=== PATIENT | female | born 1970 | race Caucasian/White ===

== ENCOUNTER 2022-06-07 15:12 | Outpatient (REF) | payer OTHER, SELFPAY ==
[2022-06-09 15:11] LABS: H Pylori Breath Test Positive (Negative)
== END 2022-06-07 15:13 | disposition home or self-care (01) ==
LOC: HO.LNP 15:12
PROVIDERS: Visit Provider Physician Assistant Surgical
DX: E66.01 Morbid (severe) obesity due to excess calories (principal)
CPT/HCPCS: 83013

== ENCOUNTER 2022-06-09 07:43 | Outpatient (REF) | payer OTHER, SELFPAY ==
--- NOTE | ~2022-06-09 | XR_ITS ---
EXAMINATION: XR CHEST CLINICAL INFORMATION: Obesity COMPARISON: None TECHNIQUE: 2 views of the chest were obtained. FINDINGS: No significant abnormality is noted involving the heart, lungs, mediastinum, bony thorax or soft tissues. XR/XR chest 2V IMPRESSION: Unremarkable examination.
--- NOTE | 2022-06-09 08:04 | ECG_ITS ---
Test Reason : E66.01 MORBID OBESITY Blood Pressure : / mmHG Vent. Rate : 069 BPM Atrial Rate : 069 BPM P-R Int : 178 ms QRS Dur : 090 ms QT Int : 402 ms P-R-T Axes : 022 020 037 degrees QTc Int : 430 ms Normal sinus rhythm Normal ECG No previous ECGs available Referred By: Vinh Benedict Electronically Signed By:LELE SILVA
[2022-06-09 08:06] LABS: MANUAL DIFF FLAG NO
[2022-06-09 09:13] LABS: Basophils Absolute Auto 0.1 X10*3/uL (0.0-0.2); Basophils Percent Auto 1.1 % (0-2); Eosinophils Absolute Auto 0.2 X10*3/uL (0.0-0.4); Eosinophils Percent Auto 2.5 % (0-4); Hematocrit 40.7 % (37.0-47.0); Hemoglobin 13.5 g/dl (12.0-16.0); Imm Gran Abs Auto 0.03 X10*3/uL (0.00-0.03); Imm Gran Pct Auto 0.4 % (0.0-0.4); Lymphocytes Absolute Auto 2.4 X10*3/uL (1.2-4.9); Lymphocytes Percent Auto 31.7 % (20-40); Mean Corpuscular HGB Conc 33.2 g/dl (31.0-35.0); Mean Corpuscular Hemoglobin 29.7 pg (27.0-33.0); Mean Corpuscular Volume 89.6 fL (80.0-98.0); Mean Platelet Volume 10.6 fL (9.4-12.3); Monocytes Absolute Auto 0.8 X10*3/uL (0.1-1.2); Neutrophils Absolute Auto 4.1 x10*3/uL (2.0-8.3); Neutrophils Percent Auto 54.3 % (45-73); Platelet Count 354 X10*3/uL (160-400); Red Blood Count 4.54 X10*6/uL (4.20-5.50); Red Cell Distribution Width 12.9 % (11.0-16.0); White Blood Count 7.5 X10*3/uL (4.8-10.8)
[2022-06-09 09:24] LABS: Estimated Average Glucose 111 mg/dL; Hemoglobin A1c % 5.5 %
[2022-06-09 09:53] LABS: Alanine Aminotransferase 24 U/L (0-31); Albumin Level 3.9 g/dL (3.5-5.0); Alkaline Phosphatase 74 U/L (39-117); Anion Gap 13 (12-20); Aspartate Amino Transferase 19 U/L (5-31); Bilirubin Total 0.3 mg/dL (0.0-1.0); Blood Urea Nitrogen 13 mg/dL (9-16); C Reactive Protein 0.48 mg/dL (< or = 0.50); Calcium 8.5 mg/dL (8.4-10.2); Carbon Dioxide 22 mmol/L (22-29); Chloride 106 mmol/L (96-108); Cholesterol 162 mg/dL; Estimated Glomerular Filt Rate > 60; Glucose Random 89 mg/dL (60-115); HDL Cholesterol 46 mg/dL; Iron 71 mcg/dL (30-160); LDL Cholesterol Calculated 102 mg/dl; Percent Iron Saturation 18 % (15-50); Potassium 4.3 mmol/L (3.3-5.1); Sodium 137 mmol/L (135-145); Total Iron Binding Capacity 384 mcg/dL (228-428); Total Protein 7.2 g/dL (6.5-8.0); Triglycerides 74 mg/dL; Unsaturated Iron Binding 313 ug/dL
[2022-06-09 10:09] LABS: Ferritin 48 ng/mL (10-250); TSH reflex Free T4 1.63 uIU/mL (0.32-4.0); Vitamin D 25-OH Total 13.4 ng/mL (>30)
[2022-06-09 10:20] LABS: Folate 8.4 ng/mL (> or = 4.0); Vitamin B12 325 pg/mL (200-900)
[2022-06-09 11:06] LABS: Insulin 10 uU/mL (2-29)
[2022-06-10 11:32] LABS: Calcium (PTHI) 8.9 mg/dL (8.6-10.4); PTHI 133 pg/mL (16-77)
[2022-06-12 15:34] LABS: Zinc 73 mcg/dL (60-130)
[2022-06-15 22:47] LABS: Vitamin A 32 mcg/dL (38-98)
[2022-06-18 17:31] LABS: Vitamin B1 8 nmol/L (8-30)
== END 2022-06-09 07:44 | disposition home or self-care (01) ==
LOC: HO.XRAY 07:43
PROVIDERS: PCP Internal Medicine; Visit Provider Physician Assistant Surgical
DX: E66.01 Morbid (severe) obesity due to excess calories (principal)
CPT/HCPCS: 36415; 71046; 80053; 80061; 82306; 82607; 82728; 82746; 83036; 83525; 83540; 83970; 84425; 84443; 84590; 84630; 85025; 86140; 93005

== ENCOUNTER → 2022-07-02 13:00 | Outpatient (BNVA) | payer OTHER, SELFPAY | PROVIDERS: PCP Internal Medicine; Visit Provider Dietitian, Registered | DX: E66.01 Morbid (severe) obesity due to excess calories (principal); Z71.3 Dietary counseling and surveillance | CPT/HCPCS: 97802 ==

== ENCOUNTER → 2022-07-12 08:42 | Outpatient (BNVA) | payer OTHER, SELFPAY | PROVIDERS: PCP Internal Medicine; Visit Provider Dietitian, Registered | DX: E66.9 Obesity, unspecified (principal); F90.2 Attention-deficit hyperactivity disorder, combined type; Z68.38 Body mass index [BMI] 38.0-38.9, adult | CPT/HCPCS: 90791; 97803 ==

== ENCOUNTER 2022-07-13 16:08 | Outpatient (REF) | payer OTHER, SELFPAY ==
[2022-07-15 15:34] LABS: H Pylori Breath Test Negative (Negative)
== END 2022-07-13 16:09 | disposition home or self-care (01) ==
LOC: HO.LNP 16:08
PROVIDERS: Visit Provider Physician Assistant Surgical
DX: Z01.818 Encounter for other preprocedural examination (principal)
CPT/HCPCS: 83013

== ENCOUNTER → 2022-07-28 12:56 | Outpatient (BNVA) | payer OTHER, SELFPAY | PROVIDERS: PCP Internal Medicine; Visit Provider Counselor Mental Health | DX: E66.01 Morbid (severe) obesity due to excess calories (principal); F90.2 Attention-deficit hyperactivity disorder, combined type | CPT/HCPCS: 90834 ==

== ENCOUNTER 2022-08-24 07:39 | Outpatient (REF) | payer OTHER, SELFPAY ==
--- NOTE | ~2022-08-24 | FL_ITS ---
EXAMINATION: FLUOROSCOPY UPPER GI WITH AIR CLINICAL INFORMATION: Preop surgical weight loss COMPARISON: None. TECHNIQUE: An upper GI examination is performed under fluoroscopic observation with digital image acquisition. The patient drank effervescent granules, thick and thin barium consistencies without difficulty. Patient swallowed a 13 mm diameter barium tablet with water. FINDINGS: The esophagus is normal in motility and morphology. Normal caliber. No hiatal hernia. No spontaneous gastroesophageal reflux. The stomach demonstrates normal motility with normal rugal folds. The duodenal bulb and proximal duodenum demonstrate no evidence of ulcer, mass lesion, or displacement. The barium tablet coursed promptly into the stomach. No stricture. FLUOROSCOPY TIME: 1.7 minutes TOTAL: 61.993 MGY DAP: 20.431 GYCM2 ADDITIONAL FINDINGS: None. FL/FL upper GI w air IMPRESSION: Normal UGI. Normal esophageal and gastric motility. No hiatal hernia.
--- NOTE | ~2022-08-24 | US_ITS ---
EXAMINATION: US COMPLETE ABDOMEN WITH LIVER ELASTOGRAPHY CLINICAL INFORMATION: Obesity COMPARISON: None. TECHNIQUE: Real-time imaging of the abdominal viscera. Noninvasive ultrasound liver fibrosis assessment is performed using Leandro ElastPQ point quantification shear wave elastography (2D-SWE) with a C5-2 MHz transducer. Multiple elastography samples are obtained. FINDINGS: PANCREAS: Normal. ABDOMINAL AORTA: The proximal, middle, and distal aortic segments are normal in caliber. INFERIOR VENA CAVA: Visualized portions are normal. LIVER: Liver echotexture is increased. The liver demonstrates normal size, and contour. No focal lesion or intrahepatic biliary duct dilatation. The right lobe measures 18 cm in length. The left lobe measures 10 cm in length. Portal Flow is normal/ Shear wave liver elastography median stiffness is 1.5 m/s (reference: normal median stiffness is 1.3 m/s or less). IQR/median stiffness to assess sampling precision is 0.05 (reference: good quality data set is IQR/median stiffness of 0.15 or less). GALLBLADDER: Normal. The gallbladder is physiologically distended without evidence of stones, sludge, polyps, wall thickening or pericholecystic fluid. COMMON BILE DUCT: Normal in caliber measuring 0.7 cm in diameter. RIGHT KIDNEY: Normal. No hydronephrosis. No renal calculi or focal parenchymal lesions. The kidney measures 13 cm in maximum dimension. LEFT KIDNEY: Normal. No hydronephrosis. No renal calculi or focal parenchymal lesions. The kidney measures 12 cm in maximum dimension. SPLEEN: Normal. The spleen measures 10 cm in maximum dimension. FREE FLUID: None. US/US abdomen comp w elastography IMPRESSION: 1. Impression: Echogenic liver probably representing fatty infiltration. 2. Liver elastography: Adequate liver sampling. In the absence of other known clinical signs, rules out compensated advanced chronic liver disease. REFERENCE: Society of Radiologists in Ultrasound Liver Stiffness Thresholds (2020): LIVER STIFFNESS THRESHOLDS: *Liver Stiffness equal or less than 1.3 m/s: High probability of being normal. *Liver Stiffness less than 1.7 m/s: In the absence of other known clinical signs, rules out compensated advanced chronic liver disease. *Liver Stiffness 1.7-2.1 m/s: Suggestive of compensated advanced chronic liver disease but need further test for confirmation. *Liver Stiffness over 2.1 m/s: Rules in compensated advanced chronic liver disease. *Liver Stiffness over 2.4 m/s: Suggestive of clinically significant portal hypertension. QUALITY OF DATA SET: *IQR/Median value equal or less than 0.15 implies a quality data set. *IQR/Median value over 0.15 implies a poor quality data set. SIGNIFICANT CHANGE FROM PRIOR EXAM: Significant change if liver stiffness measurement is 10% or greater from prior exam. OTHER CONSIDERATIONS: The stage of liver fibrosis may be overestimated in the setting of acute hepatitis, liver inflammation, elevated liver function tests, hepatic vascular congestion, obstructive cholestasis, non-fasting state, and infiltrative diseases such as amyloidosis and lymphoma. In some patients with NAFLD, the liver stiffness thresholds for compensated advanced chronic liver disease may be lower. In causes other than viral hepatitis and NAFLD, liver stiffness thresholds are not well established.
== END 2022-08-24 07:40 | disposition home or self-care (01) ==
LOC: HO.US 07:39
PROVIDERS: Visit Provider Physician Assistant Surgical
DX: Z01.818 Encounter for other preprocedural examination (principal); E66.01 Morbid (severe) obesity due to excess calories
CPT/HCPCS: 74246; 76705; 76981

== ENCOUNTER 2022-08-30 03:53 | Emergency (ER) | payer OTHER, SELFPAY ==
--- NOTE | ~2022-08-30 | US_ITS ---
EXAMINATION: US VENOUS ULTRASOUND WITH DOPPLER LOWER EXTREMITY, LEFT CLINICAL INFORMATION: Left neck pain and swelling COMPARISON: None TECHNIQUE: Ultrasound of the deep veins is performed from the hip to the calf with compression sonography and color and pulse Doppler assessment. Spectral analysis with color-flow imaging is performed. FINDINGS: There is normal venous compression and respiratory variation and augmented flow. The visualized common femoral vein, superficial femoral vein, profunda femoral vein, popliteal vein, and the trifurcation region shows no evidence of deep venous thrombosis. There is no significant popliteal fossa cyst. If the patient's symptoms persist, followup ultrasound in 5 days 7 days might be of value to exclude proximal propagation from a non-visualized calf vein. US/US venous duplex LE LT IMPRESSION: No DVT demonstrated in the left lower extremity.
[2022-08-30 04:44] VITALS: BP 114/70; PULSE 80; RESP 20; TEMP 36.5; O2SAT 98; BMI 37.3
[2022-08-30 08:19] VITALS: BP 114/71; PULSE 73; RESP 19; TEMP 36.7; O2SAT 100
--- NOTE | 2022-08-30 08:28 | PC.NURSE ---
pt is a/o x 4 no sob/prosper noted lungs - cta. heart sound regular. skin pink warm dry, very slight edema noted to l lower ext warm to touch. abd soft and n/t, bx + x 4 quads. pt aware of plan of care.
--- NOTE | 2022-08-30 09:04 | ED.LOWEXIN ---
HPI - Extremity Injury (Lower) General Chief Complaint: Extremity Injury, Lower Stated Complaint: Bilateral legs painful , redness Time Seen by Provider: 08/30/22 08:39 Source: patient Mode of arrival: ambulatory History of Present Illness HPI Narrative: 51-year-old female with a past medical history of HTN, hypothyroid, obesity, presenting to the ED complaining of left lower extremity edema, redness, and calf pain x1 week. Admits called bariatric surgeon & was started on Keflex, last day is tomorrow. Denies taking anticoagulation. Denies fever, chills, SOB, CP, recent travel, sick contacts Onset (ago): week(s) Related Data Home Medications Medication Instructions Recorded Confirmed albuterol sulfate 90 mcg/actuation 0 mcg inhalation 05/21/22 aerosol inhaler amlodipine 10 mg tablet 10 mg PO DAILY 05/21/22 hydrochlorothiazide 25 mg tablet 25 mg PO DAILY 05/21/22 levothyroxine 200 mcg tablet 200 mcg PO DAILY PRN 05/21/22 (Euthyrox) levothyroxine 50 mcg tablet 50 mcg PO QAM 05/21/22 (Euthyrox) onabotulinumtoxinA 200 unit intradermal 05/21/22 solution for injection (Botox) Previous Rx's Medication Instructions Recorded amoxicillin 500 mg capsule 1,000 mg PO Q12H 14 days #56 caps 06/09/22 cholecalciferol (vitamin D3) 125 125 mcg PO DAILY #30 caps 06/09/22 mcg (5,000 unit) capsule clarithromycin 500 mg tablet 500 mg PO Q12H 14 days #28 tabs 06/09/22 omeprazole 40 mg capsule,delayed 40 mg PO BID 14 days #28 caps 06/09/22 release vitamin A palmitate 10,000 unit 10,000 unit PO DAILY #30 caps 06/16/22 capsule fluconazole 150 mg tablet 150 mg PO DAILY #2 tabs 06/25/22 (Diflucan) mecobalamin (vitamin B12) 1,000 1,000 mcg sublingual DAILY #30 tabs 06/28/22 mcg disintegrating tablet,sublingual cephalexin 500 mg capsule 500 mg PO Q12H #14 caps 08/21/22 Allergies Allergy/AdvReac Type Severity Reaction Status Date / Time diphenhydramine Allergy Severe UNRESPONSIV Verified 06/07/22 14:06 [From BENADRYL] E acetaminophen [From PERCOCET] Allergy Intermediate ITCHYNESS, Verified 06/07/22 14:06 HIVES. meperidine [From DEMEROL] Allergy Intermediate HIVES, Verified 06/07/22 14:06 ITCHINESS, VOMITING oxycodone [From PERCOCET] Allergy Intermediate ITCHYNESS, Verified 06/07/22 14:06 HIVES. propoxyphene Allergy Intermediate ITCHYNESS, Verified 06/07/22 14:06 [From DARVOCET-N] tizanidine Allergy Mild Unknown Verified 06/07/22 14:06 miconazole [From MONISTAT 3] Allergy Unknown UNKNOWN Verified 06/07/22 14:06 skin cleanser combination Allergy Unknown UNKNOWN Verified 06/07/22 14:06 no.17 [From MONISTAT 3] Review of Systems Review of Systems: Constitutional: No Fever, No Chills ENT/Mouth: No Ear Pain, No Nasal Congestion, No Sinus Pain, No Hoarseness, No sore throat, No Rhinorrhea, No Swallowing Difficulty Cardiovascular: No Chest Pain, No SOB, +Edema Respiratory: No Cough, No Sputum, No Wheezing Gastrointestinal: No Nausea, No Vomiting, No Diarrhea, No Constipation, No Abdominal pain Genitourinary: No Dysuria, No Urinary Frequency, No Hematuria, No Flank Pain Musculoskeletal: No joint pain, No Myalgias, No Joint Swelling Skin: No Skin Lesions, No rash Neuro: No Weakness, No Numbness, No Paresthesias Yes all other systems are reviewed and are negative Constitutional: Constitutional: Reports as per [facility] Past Medical History Attestation statement: The following information was validated with the patient. Surgical History History of 2 sections Hx of bladder endoscopy Hx of colonoscopy Hx of hysterectomy Hx of rotator cuff surgery Hx of toe surgery Hx of wisdom tooth extraction Family History Family History Mother HTN (hypertension), benign Father Cancer Son ADHD Son ADHD Son ADHD Social History Social History Alcohol intake: never Patient Tobacco Use Status: Former Tobacco user Quit Date: 05/10/22 Use of substances other than those prescribed or required for medical reasons: No Advance Directives: Yes Advance Directives Information Provided: Yes Advance Directives on File: No Patient : No Physical Exam Vital Signs: Vital Signs: Last Vital Signs Temp 98.1 F 08/30/22 08:19 Pulse 73 08/30/22 08:19 Resp 19 08/30/22 08:19 BP 114/71 08/30/22 08:19 Pulse Ox 100 08/30/22 08:19 O2 Del Method 08/30/22 08:19 BMI result Body Mass Index 37.3 Const: General: cooperative, healthy appearing and no acute distress Orientation/consciousness: patient oriented x3 Limitations: no limitations HEENT: Head: Yes normal to inspection and Yes atraumatic Ears: hearing grossly normal bilaterally General nose exam: Normal external nose present Face and sinus: Yes normal facial exam Eyes: General: appearance normal, both eyes and all related structures EOM: EOMs intact bilaterally Neck: Neck: Yes normal visual inspection and Yes no meningeal signs Resp: Effort & Inspection: normal respiratory effort and no respiratory distress Cardio: Rate: regular rate Heart sounds: S1 normal heart sound present and S2 normal heart sound present Peripheral pulses: Peripheral pulses 2+ throughout GI: Inspection: Yes normal to inspection : General: Yes no CVA tenderness Back/Spine/Pelvis: Back: no CVA tenderness Skin: Rashes: no rashes Wounds: no wounds Neuro: General: patient oriented x3, tone normal and no meningeal signs Gait exam (Neuro): Normal gait present Extrem: Other: + mild left lower extremity swelling. + left calf tenderness. Neurovascularly intact. No erythema/warmth. Full range of motion intact Course Course Course Narrative: US venous duplex LE LT IMPRESSION: No DVT demonstrated in the left lower extremity. > Results discussed with patient including worrisome signs and symptoms and strict return precautions, and when to return to the emergency department. They verbalized understanding and feel safe for discharge at this time. MDM - Extremity Injury (Lower) MDM Narrative Medical decision making narrative: 51-year-old female with a past medical history of HTN, hypothyroid, obesity, presenting to the ED complaining of left lower extremity edema, redness, and calf pain x1 week. On exam vital signs stable, NAD, nontoxic appearing, physical exam as above with noted left lower extremity swelling and calf tenderness. Concern for DVT. No evidence of infection/cellulitis. Compartments soft. No crepitus. Low suspicion for septic joint. Unlikely PE. Plan: Venous duplex ultrasound Medical Records Attestation: I reviewed the patient's medical records. Lab Data Attestation: I reviewed the patient's lab results. Discharge Plan Discharge Clinical Impression: Leg swelling Patient Disposition: Home, Self-Care Instructions: Edema (ED) Additional Instructions: Your ultrasound is negative for DVT. Continue previously prescribed antibiotic. Please have close follow-up with her doctor. If you have continued or worsening pain, area begins to look infected, is red, you have fever, shortness breath or chest pain return to the emergency department Prescriptions: No Action cholecalciferol (vitamin D3) 125 mcg (5,000 unit) capsule 125 mcg PO DAILY Qty: 30 3RF amoxicillin 500 mg capsule 1,000 mg PO Q12H 14 Days Qty: 56 0RF clarithromycin 500 mg tablet 500 mg PO Q12H 14 Days Qty: 28 0RF omeprazole 40 mg capsule,delayed release(DR/EC) 40 mg PO BID 14 Days Qty: 28 0RF vitamin A palmitate 10,000 unit capsule 10,000 unit PO DAILY Qty: 30 2RF fluconazole [Diflucan] 150 mg tablet 150 mg PO DAILY Qty: 2 0RF Rx Instructions: Take one tab on 06/27/22, may repeat on 06/29/22 if symptoms persist cephalexin 500 mg capsule 500 mg PO Q12H Qty: 14 0RF mecobalamin (vitamin B12) 1,000 mcg tablet,disintegrating 1,000 mcg sublingual DAILY Qty: 30 2RF Rx Instructions: place tablet under tongue and allow to dissolve for at least30 secs before swallowing amlodipine 10 mg tablet 10 mg PO DAILY hydrochlorothiazide 25 mg tablet 25 mg PO DAILY levothyroxine [Euthyrox] 200 mcg tablet 200 mcg PO DAILY PRN levothyroxine [Euthyrox] 50 mcg tablet 50 mcg PO QAM Botox 200 unit recon soln intradermal albuterol sulfate 90 mcg/actuation HFA aerosol inhaler 0 mcg inhalation Referrals: Kashif Jett MD [Primary Care Provider] - 3 days
== END 2022-08-30 10:50 | disposition home or self-care (01) ==
PROVIDERS: Emergency Provider Student in an Organized Health Care Education/Training Program; PCP Internal Medicine
DX: R60.0 Localized edema (principal); M79.605 Pain in left leg; M79.604 Pain in right leg; Z79.899 Other long term (current) drug therapy
CPT/HCPCS: 93971; 99284

== ENCOUNTER 2023-09-29 09:54 | Emergency (ER) | payer SELFPAY ==
[2023-09-29 09:57] VITALS: BP 144/100; PULSE 79; RESP 18; TEMP 36.4; O2SAT 94; BMI 35.2
[2023-09-29 10:46] VITALS: BP 135/91
--- NOTE | 2023-09-29 11:34 | ED.NAVMDI ---
HPI - Nausea/Vomiting/Diarrhea General Chief complaint: Nausea/Vomiting/Diarrhea Stated complaint: diarrhea Time Seen by Provider: 09/29/23 10:44 Source: patient Mode of arrival: ambulatory Limitations: no limitations History of Present Illness HPI Narrative: 53-year-old female . Weight hypertension, celiac disease, hypothyroidism, ADHD, Meniere's, migraine x3 who presents emergency department for evaluation diarrhea x5 days. Patient states that she was seen at other emergency department for vertigo on 09/24/2023 for vertigo was started on meclizine. She states the next day she started to have diarrhea. She states that she took Imodium with resolution of the diarrhea but then it started back again the following day. She states she has been moving her bowels frequently every every 1-2 hours. She describes the diarrhea as watery with no blood in the stool. She states she feels bloated and her abdomen is cramping. She is feeling tired and weak. She denied fever, chills, rhinorrhea, sore throat, cough, nausea or vomiting. The patient has not been on antibiotics recently. She has not traveled recently. She states that her dog did have Giardia and coccydiosis. Patient does work at [employer] as a nurse but does not believe that she has been exposed any patient's recently with C diff colitis. Related Data Home Medications Medication Instructions Recorded Confirmed albuterol sulfate 90 mcg/actuation 0 mcg inhalation 05/21/22 aerosol inhaler amlodipine 10 mg tablet 10 mg PO DAILY 05/21/22 hydrochlorothiazide 25 mg tablet 25 mg PO DAILY 05/21/22 levothyroxine 200 mcg tablet 200 mcg PO DAILY PRN 05/21/22 (Euthyrox) levothyroxine 50 mcg tablet 50 mcg PO QAM 05/21/22 (Euthyrox) onabotulinumtoxinA 200 unit intradermal 05/21/22 solution for injection (Botox) Previous Rx's Medication Instructions Recorded amoxicillin 500 mg capsule 1,000 mg (2 x 500 mg) PO Q12H 14 06/09/22 days #56 caps cholecalciferol (vitamin D3) 125 125 mcg PO DAILY #30 caps 06/09/22 mcg (5,000 unit) capsule clarithromycin 500 mg tablet 500 mg PO Q12H 14 days #28 tabs 06/09/22 omeprazole 40 mg capsule,delayed 40 mg PO BID 14 days #28 caps 06/09/22 release vitamin A palmitate 3,000 mcg 10,000 unit PO DAILY #30 caps 06/16/22 (10,000 unit) capsule fluconazole 150 mg tablet 150 mg PO DAILY #2 tabs 06/25/22 (Diflucan) mecobalamin (vitamin B12) 1,000 1,000 mcg sublingual DAILY #30 tabs 06/28/22 mcg disintegrating tablet,sublingual cephalexin 500 mg capsule 500 mg PO Q12H #14 caps 08/21/22 morphine 15 mg immediate release 15 mg PO Q6H PRN pain #10 tabs 09/29/23 tablet Allergies Allergy/AdvReac Type Severity Reaction Status Date / Time diphenhydramine Allergy Severe UNRESPONSIV Verified 09/29/23 09:57 [From BENADRYL] E acetaminophen [From PERCOCET] Allergy Intermediate ITCHYNESS, Verified 09/29/23 09:57 HIVES. meperidine [From DEMEROL] Allergy Intermediate HIVES, Verified 09/29/23 09:57 ITCHINESS, VOMITING oxycodone [From PERCOCET] Allergy Intermediate ITCHYNESS, Verified 09/29/23 09:57 HIVES. propoxyphene Allergy Intermediate ITCHYNESS, Verified 09/29/23 09:57 [From DARVOCET-N] tizanidine Allergy Mild Unknown Verified 09/29/23 09:57 miconazole [From MONISTAT 3] Allergy Unknown UNKNOWN Verified 09/29/23 09:57 skin cleanser combination Allergy Unknown UNKNOWN Verified 09/29/23 09:57 no.17 [From MONISTAT 3] Review of Systems Review of Systems: Yes all other systems are reviewed and are negative [facility] Past Medical History [facility] Narrative: Past medical history: Hypertension, celiac disease, hypothyroidism, ADHD, Meniere's disease, migraines. Surgical History History of 2 sections Hx of bladder endoscopy Hx of colonoscopy Hx of hysterectomy Hx of rotator cuff surgery Hx of toe surgery Hx of wisdom tooth extraction Family History Family History Mother HTN (hypertension), benign Father Cancer Son ADHD Son ADHD Son ADHD Social History Social History Alcohol intake: never Patient Tobacco Use Status: Former Tobacco user Quit Date: 05/10/22 Advance Directives: No Advance Directives Information Provided: No Physical Exam Vital Signs: Vital Signs: Last Vital Signs Temp 97.6 F 09/29/23 09:57 Pulse 79 09/29/23 09:57 Resp 18 09/29/23 09:57 BP 135/91 H 09/29/23 10:46 Pulse Ox 94 09/29/23 09:57 BMI result Body Mass Index 35.2 Exam General: Awake, alert in no distress Head: Normocephalic, atraumatic EENT: PERRL, Lids normal, sclera normal, conjunctiva normal, nose normal , ears normal, throat without erythema or exudates Neck: Supple, no adenopathy, no trachea midline or C-spine tenderness Lung: breath sounds symmetric, no wheezing, rales or rhonchi Chest: symmetric movement, nontender Heart: regular rate and rhythm, normal S1, S2 no murmurs or rubs Abdomen: soft, moderate right upper and left upper quadrant tenderness, mild diffuse tenderness Back: no vertebral tenderness, no CVAT Extremities: no deformities, moves all extremities symmetrically Neuro: Awake, alert, oriented, normal speech, moves all extremities symmetrically Psych: Pleasant, cooperative Medications Administered Discontinued Medications Generic Name Dose Route Start Last Admin Trade Name Freq PRN Reason Stop Dose Admin Sodium Chloride 1,000 mls @ 999 mls/hr 09/29/23 11:33 09/29/23 11:54 Ns IV 09/29/23 12:33 999 mls/hr .Q1H1M STA Administration Morphine Sulfate 4 mg 09/29/23 11:33 09/29/23 11:54 Morphine Sulfate 4 Mg/Ml Cartridge IVPUSH 09/29/23 11:34 4 mg ONCE STA Administration Protocol Ondansetron HCl 4 mg 09/29/23 11:33 09/29/23 11:54 Ondansetron Hcl 4 Mg/2 Ml Vial IVPUSH 09/29/23 11:34 4 mg ONCE ONE Administration Medical Decision Making Medical Decision Making MDM Narrative: 53-year-old female . Weight hypertension, celiac disease, hypothyroidism, ADHD, Meniere's, migraine x3 who presents emergency department for evaluation diarrhea x5 days. Patient did take Imodium for 2 days with only minimal improvement of her symptoms, she states she is moving her bowels every 1-2 hours but has not noticed any blood in her bowel movements. She had no fever or chills. Patient's dog did have giardia and coccydiosis. 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 Following evaluation was ordered: CBC, CMP, lipase, GI panel, C diff Patient was treated with normal saline IV x1 L, morphine 4 mg IV and Zofran 4 mg IV. 14:12 Patient did get improvement with the above treatment but did require 2nd dose of morphine 4 mg IV. My interpretation of the patient's laboratory evaluation as follows: CBC was normal. CMP was normal. Lipase was normal. Patient was unable to give us a stool sample therefore she will be sent home with GI panel collection cup and a C diff collection cup with instructions on how they work. Patient will also be given axis the patient portal so she can check these results as an outpatient. Patient was advised to take Tylenol and ibuprofen for pain and for pain not relieved by these medications she was prescribed morphine. She was also given a work note. Differential Diagnosis Differential Diagnoses: The differential diagnosis associated with the presentation includes Differential diagnosis includes was not limited to viral syndrome, C diff, Giardia, bacterial the infection causing diarrhea, dehydration, anemia, electrolyte abnormalities Admission/Observation Consideration of admission/observation: Escalation of care including admission/observation considered Lab Data [facility] Lab Attestation statement: I reviewed the patient's lab results. See [facility] 09/29/23 11:52 09/29/23 11:52 Labs: Lab Results 09/29/23 Range/Units 11:52 WBC 6.0 (4.8-10.8) X10*3/uL RBC 4.93 (4.20-5.50) X10*6/uL Hgb 14.8 (12.0-16.0) g/dl Hct 44.3 (37.0-47.0) % MCV 89.9 (80.0-98.0) fL MCH 30.0 (27.0-33.0) pg MCHC 33.4 (31.0-35.0) g/dl RDW 13.7 (11.0-16.0) % Plt Count 289 (160-400) X10*3/uL MPV 10.4 (9.4-12.3) fL Immature Gran % (Auto) 0.2 (0.0-0.4) % Neut % (Auto) 41.5 L (45-73) % Lymph % (Auto) 43.0 H (20-40) % Mccormick % (Auto) 10.6 (2-11) % Eos % (Auto) 4.2 H (0-4) % Baso % (Auto) 0.5 (0-2) % Lymph # (Auto) 2.6 (1.2-4.9) X10*3/uL Mccormick # (Auto) 0.6 (0.1-1.2) X10*3/uL Eos # (Auto) 0.3 (0.0-0.4) X10*3/uL Baso # (Auto) 0.0 (0.0-0.2) X10*3/uL Abs Immat Gran (auto) 0.01 (0.00-0.03) X10*3/uL Absolute Neuts (auto) 2.5 (2.0-8.3) x10*3/uL Absolute Nucleated RBC 0.000 (0.0-0.012) X10*3/uL Nucleated RBC % (auto) 0.0 (0.0-0.2) /100WBC Sodium 140 (135-145) mmol/L Potassium 3.6 (3.3-5.1) mmol/L Chloride 108 (96-108) mmol/L Carbon Dioxide 28 (22-29) mmol/L Anion Gap 8 L (12-20) BUN 9 (9-16) mg/dL Creatinine 0.72 (0.5-1.4) mg/dL Estim Creat Clear Calc 114.6 Estimated GFR > 60 Random Glucose 73 (60-115) mg/dL Calcium 8.9 (8.4-10.2) mg/dL Total Bilirubin 0.3 (0.0-1.0) mg/dL AST 19 (5-31) U/L ALT 18 (0-31) U/L Alkaline Phosphatase 70 (39-117) U/L Total Protein 7.2 (6.5-8.0) g/dL Albumin 3.9 (3.5-5.0) g/dL Lipase 24 (8-78) U/L Prescription Management I considered prescription management with: Pain Medication Discharge Plan Discharge Clinical Impression: Abdominal pain Qualifiers: Abdominal location: generalized Qualified Code(s): R10.84 - Generalized abdominal pain Diarrhea Qualifiers: Diarrhea type: unspecified type Qualified Code(s): R19.7 - Diarrhea, unspecified Patient Disposition: Home, Self-Care Instructions: Acute Diarrhea (ED), Abdominal Pain (ED) Additional Instructions: Your complete blood count, comprehensive metabolic panel and lipase were all normal which is reassuring. Your abdominal pain is most likely caused by the diarrhea. Take ibuprofen 200 mg pills, 2 pills every 6 hours as needed for pain. Take Tylenol (acetaminophen) 2 pills every 6 hours as needed for pain. For pain not relieved by ibuprofen or Tylenol take morphine 15 mg pills, 1 pill every 4 hours as needed for pain. This medication will make you sleepy, do not drive or work while taking this medication. Morphine is a narcotic medication and can be addicting. If you are concerned about addiction you can ask the pharmacist for less pills or do not get this prescription filled. GI panel collection instructions: We are sending you home with a stool sample orange top tube for a ?GI Panel . This test is a genetic nucleotide test for multiple infectious causes of diarrhea. This test is time sensitive needs to be put into the orange top tube within 2 hours of collection. The test then needs to be run within 4 days of collection. You should bring the tube back to the outpatient lab as soon as possible. The outpatient lab is open till 6:00 PM on weekend, 11:00 AM on Tuesday and closed on Sundays. You will then need to get the results from your primary care doctor. Follow-up instructions: Follow-up with your doctor in 2 days. Please return to the emergency department if your symptoms get worse or if you develop any symptoms that are concerning to you. Prescriptions: New morphine 15 mg tablet 15 mg PO Q6H PRN (Reason: pain) Qty: 10 0RF Rx Instructions: The patient may ask for partial fill; Partial Fill upon patient request. No Action cholecalciferol (vitamin D3) 125 mcg (5,000 unit) capsule 125 mcg PO DAILY Qty: 30 3RF amoxicillin 500 mg capsule 1,000 mg PO Q12H 14 Days Qty: 56 0RF clarithromycin 500 mg tablet 500 mg PO Q12H 14 Days Qty: 28 0RF omeprazole 40 mg capsule,delayed release(DR/EC) 40 mg PO BID 14 Days Qty: 28 0RF vitamin A palmitate 10,000 unit capsule 10,000 unit PO DAILY Qty: 30 2RF fluconazole [Diflucan] 150 mg tablet 150 mg PO DAILY Qty: 2 0RF Rx Instructions: Take one tab on 06/27/22, may repeat on 06/29/22 if symptoms persist cephalexin 500 mg capsule 500 mg PO Q12H Qty: 14 0RF mecobalamin (vitamin B12) 1,000 mcg tablet,disintegrating 1,000 mcg sublingual DAILY Qty: 30 2RF Rx Instructions: place tablet under tongue and allow to dissolve for at least30 secs before swallowing amlodipine 10 mg tablet 10 mg PO DAILY hydrochlorothiazide 25 mg tablet 25 mg PO DAILY levothyroxine [Euthyrox] 200 mcg tablet 200 mcg PO DAILY PRN levothyroxine [Euthyrox] 50 mcg tablet 50 mcg PO QAM Botox 200 unit recon soln intradermal albuterol sulfate 90 mcg/actuation HFA aerosol inhaler 0 mcg inhalation Stand Alone Forms: Work/School Release
[2023-09-29] MEDS: Morphine Sulfate 4 MG/ML CARTRIDGE IVPUSH ×2 (11:54→14:50)
[2023-09-29] MEDS: ondansetron HCL 4 MG/2 ML VIAL IVPUSH (11:54)
[2023-09-29] MEDS: 0.9 % Sodium Chloride 1,000 ML 999 ML IV (11:54)
[2023-09-29 12:04] LABS: MANUAL DIFF FLAG NO
[2023-09-29 12:07] LABS: Basophils Percent Auto 0.5 % (0-2); Eosinophils Absolute Auto 0.3 X10*3/uL (0.0-0.4); Eosinophils Percent Auto 4.2 % (0-4); Hematocrit 44.3 % (37.0-47.0); Hemoglobin 14.8 g/dl (12.0-16.0); Imm Gran Abs Auto 0.01 X10*3/uL (0.00-0.03); Imm Gran Pct Auto 0.2 % (0.0-0.4); Lymphocytes Absolute Auto 2.6 X10*3/uL (1.2-4.9); Mean Corpuscular HGB Conc 33.4 g/dl (31.0-35.0); Mean Corpuscular Volume 89.9 fL (80.0-98.0); Mean Platelet Volume 10.4 fL (9.4-12.3); Monocytes Absolute Auto 0.6 X10*3/uL (0.1-1.2); Monocytes Percent Auto 10.6 % (2-11); Neutrophils Absolute Auto 2.5 x10*3/uL (2.0-8.3); Neutrophils Percent Auto 41.5 % (45-73); Platelet Count 289 X10*3/uL (160-400); Red Blood Count 4.93 X10*6/uL (4.20-5.50); Red Cell Distribution Width 13.7 % (11.0-16.0)
[2023-09-29 12:17] LABS: Lipase 24 U/L (8-78)
[2023-09-29 12:21] LABS: Alanine Aminotransferase 18 U/L (0-31); Albumin Level 3.9 g/dL (3.5-5.0); Alkaline Phosphatase 70 U/L (39-117); Anion Gap 8 (12-20); Aspartate Amino Transferase 19 U/L (5-31); Bilirubin Total 0.3 mg/dL (0.0-1.0); Blood Urea Nitrogen 9 mg/dL (9-16); Calcium 8.9 mg/dL (8.4-10.2); Carbon Dioxide 28 mmol/L (22-29); Chloride 108 mmol/L (96-108); Creatinine Clr Calc Pharmacy 114.6; Estimated Glomerular Filt Rate > 60; Glucose Random 73 mg/dL (60-115); Potassium 3.6 mmol/L (3.3-5.1); Sodium 140 mmol/L (135-145); Total Protein 7.2 g/dL (6.5-8.0)
[2023-09-29 14:00] VITALS: PULSE 82; RESP 18; O2SAT 95
== END 2023-09-29 15:26 | disposition home or self-care (01) ==
PROVIDERS: Emergency Provider Emergency Medicine Emergency Medical Services
DX: R11.2 Nausea with vomiting, unspecified (principal); R53.1 Weakness; R10.84 Generalized abdominal pain; R19.7 Diarrhea, unspecified; Z87.891 Personal history of nicotine dependence; Z79.899 Other long term (current) drug therapy
CPT/HCPCS: 36415; 80053; 83690; 85025; 96361; 96374; 96375; 96376; 99284; J2270; J2405

== ENCOUNTER 2023-10-04 09:04 | Emergency (ER) | payer SELFPAY ==
--- NOTE | ~2023-10-04 | CT_ITS ---
EXAMINATION: CT ABDOMEN AND PELVIS WITHOUT CONTRAST CLINICAL INFORMATION: Abdominal pain, diarrhea COMPARISON: Abdomen ultrasound of 08/24/2022 TECHNIQUE: Multidetector volumetric imaging was performed from the superior aspect of the liver through the pubic symphysis. Sagittal and coronal reformatted images were obtained on the technologist's workstation. This CT examination was performed using dose optimization techniques as appropriate, variously including the following: *Automated exposure control *Adjustment of mA and/or kV according to patient size (this includes techniques or standardized protocols for targeted exams where dose is matched to indication/reason for exam; i.e. extremities or head) *Use of iterative reconstruction technique DLP: 924 mGy-cm FINDINGS: LUNG BASES: The visualized lung bases are unremarkable. LIVER, GALLBLADDER, AND BILIARY TREE: The liver is enlarged measuring 21 cm long, and diffusely low in density consistent with steatosis. No hepatic mass or biliary ductal dilatation is evident. The gallbladder is distended. No wall thickening or pericholecystic edema is evident. PANCREAS: Unremarkable. SPLEEN: Unremarkable. ADRENAL GLANDS: Unremarkable. KIDNEYS AND URETERS: The kidneys are normal in size, shape, and attenuation. No hydronephrosis, hydroureter, or calculi seen. No perinephric stranding. BLADDER: Unremarkable. GASTROINTESTINAL TRACT: There are multiple fluid-filled small bowel loops, and consistent with clinical diagnosis of diarrhea, but no dilated large or small bowel loops are evident. The appendix is unremarkable. ABDOMINAL WALL: No significant hernia is appreciated. LYMPH NODES: Normal. VASCULAR: Unremarkable. PELVIC VISCERA: The uterus is not identified and presumably surgically absent. There are no adnexal masses. OSSEOUS STRUCTURES: Unremarkable. CT/CT abdomen pelvis wo IV con IMPRESSION: 1. Multiple fluid-filled nondilated loops of small bowel consistent with diarrhea. 2. Hepatic steatosis. Fleischner guidelines were followed.
[2023-10-04 09:19] VITALS: BP 103/84; PULSE 100; RESP 16; TEMP 36.6; O2SAT 98; BMI 33.9
--- NOTE | 2023-10-04 14:18 | ED_ITS ---
HPI - Nausea/Vomiting/Diarrhea General Chief complaint: Nausea/Vomiting/Diarrhea Stated complaint: Diarrhea seen Time Seen by Provider: 10/04/23 13:25 Source: patient and RN notes reviewed Mode of arrival: ambulatory Limitations: no limitations History of Present Illness HPI Narrative: This is a 53-year-old female, with a history of hypertension, celiac disease, hypothyroidism, ADHD, many years, migraine, section x3, presenting to the emergency department for evaluation diarrhea x 6 days. Patient was seen in the emergency department on September 29 after having diarrhea for 5 days. At that time, she was medicated with IV fluids, morphine IV and Zofran. She was unable to give a stool sample at that time. She states that her diarrhea resolved for 2 days however then returned on Tuesday. She has had many episodes of diarrhea, states that she has had fecal incontinence due to the diarrhea. She states that she called her primary who is unable to see her for the next 3 weeks. She denies any fevers, chills, chest pain or shortness of breath. She does endorse some abdominal cramping she describes her diarrhea as watery and at times adeel like. Denies any He had she is feeling tired and weak. She has not been on recent antibiotics, no recent travel. She states that her dog recently tested positive for Giardia and coccydiosis. She works as a nurse at [employer]. She has had vomiting as well. No other complaints or concerns at this time. MD elicited complaint: nausea, diarrhea and abdominal pain Onset (ago): day(s) Description of diarrhea: pasty (Shaffer) Associated nausea: Yes Associated abdominal pain: Yes Location of pain: diffuse Pain consistency: constant Severity: moderate Quality: aching Exacerbating factors: none Relieving factors: none Associated symptoms: denies other symptoms Related Data Home Medications Medication Instructions Recorded Confirmed albuterol sulfate 90 mcg/actuation 0 mcg inhalation 05/21/22 aerosol inhaler amlodipine 10 mg tablet 10 mg PO DAILY 05/21/22 hydrochlorothiazide 25 mg tablet 25 mg PO DAILY 05/21/22 levothyroxine 200 mcg tablet 200 mcg PO DAILY PRN 05/21/22 (Euthyrox) levothyroxine 50 mcg tablet 50 mcg PO QAM 05/21/22 (Euthyrox) onabotulinumtoxinA 200 unit intradermal 05/21/22 solution for injection (Botox) Previous Rx's Medication Instructions Recorded amoxicillin 500 mg capsule 1,000 mg (2 x 500 mg) PO Q12H 14 06/09/22 days #56 caps cholecalciferol (vitamin D3) 125 125 mcg PO DAILY #30 caps 06/09/22 mcg (5,000 unit) capsule clarithromycin 500 mg tablet 500 mg PO Q12H 14 days #28 tabs 06/09/22 omeprazole 40 mg capsule,delayed 40 mg PO BID 14 days #28 caps 06/09/22 release vitamin A palmitate 3,000 mcg 10,000 unit PO DAILY #30 caps 06/16/22 (10,000 unit) capsule fluconazole 150 mg tablet 150 mg PO DAILY #2 tabs 06/25/22 (Diflucan) mecobalamin (vitamin B12) 1,000 1,000 mcg sublingual DAILY #30 tabs 06/28/22 mcg disintegrating tablet,sublingual cephalexin 500 mg capsule 500 mg PO Q12H #14 caps 08/21/22 morphine 15 mg immediate release 15 mg PO Q6H PRN pain #10 tabs 09/29/23 tablet Allergies Allergy/AdvReac Type Severity Reaction Status Date / Time diphenhydramine Allergy Severe UNRESPONSIV Verified 10/04/23 09:19 [From BENADRYL] E acetaminophen [From PERCOCET] Allergy Intermediate ITCHYNESS, Verified 10/04/23 09:19 HIVES. meperidine [From DEMEROL] Allergy Intermediate HIVES, Verified 10/04/23 09:19 ITCHINESS, VOMITING oxycodone [From PERCOCET] Allergy Intermediate ITCHYNESS, Verified 10/04/23 09:19 HIVES. propoxyphene Allergy Intermediate ITCHYNESS, Verified 10/04/23 09:19 [From DARVOCET-N] tizanidine Allergy Mild Unknown Verified 10/04/23 09:19 miconazole [From MONISTAT 3] Allergy Unknown UNKNOWN Verified 10/04/23 09:19 skin cleanser combination Allergy Unknown UNKNOWN Verified 10/04/23 09:19 no.17 [From MONISTAT 3] Review of Systems 2 Review of Systems: Yes all other systems are reviewed and are negative Constitutional: Constitutional: Reports as per HPI Gastrointestinal: Gastrointestinal: Reports nausea PMFSH Past Medical History Attestation statement: The following information was validated with the patient. Surgical History Hx of rotator cuff surgery Hx of wisdom tooth extraction Hx of bladder endoscopy Hx of colonoscopy Hx of toe surgery Hx of hysterectomy History of 2 sections Family History Family History Mother HTN (hypertension), benign Father Cancer Son ADHD Son ADHD Son ADHD Social History Social History Alcohol intake: never Patient Tobacco Use Status: Former Tobacco user Quit Date: 05/10/22 Advance Directives: No Advance Directives Information Provided: Yes Physical Exam 2 Vital Signs: Vital Signs: Last Vital Signs Temp 97.9 F 10/04/23 09:19 Pulse 84 10/04/23 19:53 Resp 18 10/04/23 19:53 BP 105/73 10/04/23 19:53 Pulse Ox 99 10/04/23 19:53 O2 Del Method Room Air 10/04/23 19:53 BMI result Body Mass Index 33.9 Const: General: cooperative, comfortable and no acute distress O rientation/consciousness: patient oriented x3 Limitations: no limitations HEENT: Head: Yes normal to inspection, Yes normocephalic and Yes atraumatic Ears: hearing grossly normal bilaterally General nose exam: Normal external nose present Face and sinus: Yes normal facial exam Mouth: Normal oral and palatal mucosa present, oropharynx normal and moist mucous membranes Throat: Yes posterior oropharynx normal Eyes: General: appearance normal, both eyes and all related structures E yelids: Yes eyelids normal Conjunctivae: conjunctivae normal Sclerae: s clerae normal Pupils: Equal, round and reactive pupils present EOM: EOMs intact bilaterally Neck: Neck: Yes normal visual inspection, Yes full ROM and Yes no lymphadenopathy Lymphatic: no lymphadenopathy noted Chest: Chest palpation & inspection: normal inspection of the chest Resp: Effort & Inspection: normal respiratory effort and able to speak in complete sentences Auscultation: clear to auscultation bilaterally, no crackles, no rales, no rhonchi and no wheezes Cardio: Rate: regular rate Rhythm: regular rhythm Heart sounds: S1 normal heart sound present and S2 normal heart sound present GI: Other: Diffuse abdominal tenderness palpation, hyperactive bowel sounds present. Her abdomen is soft Inspection: Yes normal to inspection Skin: General skin exam: no rashes or lesions noted Trauma: no lacerations or abrasions Wounds: no wounds Neuro: General: patient oriented x3 and moves all extremities Cranial nerves: Yes Equal, round and reactive pupils present Extrem: General: Yes normal to inspection Right upper extremity: normal to inspection Left upper extremity: normal to inspection Right lower extremity: normal to inspection Left lower extremity: normal to inspection Course Reevaluation(s) Reevaluation #1: Pt feeling better after IV fluids. CT abd consistent with diarrhea, no obstruction or other inflammatory process seen. Labs reassuring. Was able to provide stool sample. She is eating in the department without any difficulty, stomach pain, or symptoms. Discussed with patient to stay well hydrated and advised to take pepto bismol for symptoms. Discussed that we will call her with any abnormal results from the stool sample. Pt understands and agrees with plan. Given return precautions. Stable for d/c. Medications Administered Discontinued Medications Generic Name Dose Route Start Last Admin Trade Name Freq PRN Reason Stop Dose Admin Sodium Chloride 1,000 mls @ 999 mls/hr 10/04/23 14:16 10/04/23 16:06 Ns IV 10/04/23 15:16 999 mls/hr .Q1H1M ONE Administration Medical Decision Making Medical Decision Making [facility] Narrative: This is a 53-year-old female, with a history of hypertension, celiac disease, hypothyroidism, ADHD, migraines, Caesarean section x3, presenting to the emergency department for evaluation of diarrhea. Patient has been moving her bowels every 1-2 hours, no bloody or black stool. She does report that her stool is shaffer in color. Her patient's dog did have Giardia and coccydiosis. She was unable to provide a stool sample at her last emergency department visit. She is here as she is having worsening diarrhea. VSS. Plan: Labs, GI panel, C diff, IV fluids Differential Diagnosis Differential Diagnoses: The differential diagnosis associated with the presentation includes C diff, Giardia, viral syndrome, dehydration, anemia, electrolyte abnormality, bowel obstruction, inflammatory bowel disease Admission/Observation Consideration of admission/observation: Escalation of care including admission/observation considered Patient would have been admitted to the hospital had her work up had any findings where hospital admission was appropriate and her clinical presentation warranted hospital admission. Lab Data [facility] Lab Attestation statement: I reviewed the patient's lab results. No leukocytosis, H&H mildly elevated.electrolytes within normal limits. 10/04/23 15:54 10/04/23 16:56 Labs: Lab Results 10/04/23 10/04/23 10/04/23 Range/Units 15:54 16:56 18:35 WBC 7.7 (4.8-10.8) X10*3/uL RBC 5.71 H (4.20-5.50) X10*6/uL Hgb 17.1 H (12.0-16.0) g/dl Hct 50.9 H (37.0-47.0) % MCV 89.1 (80.0-98.0) fL MCH 29.9 (27.0-33.0) pg MCHC 33.6 (31.0-35.0) g/dl RDW 13.9 (11.0-16.0) % Plt Count 324 (160-400) X10*3/uL MPV 10.6 (9.4-12.3) fL Immature Gran % (Auto) 0.4 (0.0-0.4) % Neut % (Auto) 46.9 (45-73) % Lymph % (Auto) 36.6 (20-40) % [place] % (Auto) 10.3 (2-11) % Eos % (Auto) 5.5 H (0-4) % Baso % (Auto) 0.3 (0-2) % Lymph # (Auto) 2.8 (1.2-4.9) X10*3/uL [place] # (Auto) 0.8 (0.1-1.2) X10*3/uL Eos # (Auto) 0.4 (0.0-0.4) X10*3/uL Baso # (Auto) 0.0 (0.0-0.2) X10*3/uL Abs Immat Gran (auto) 0.03 (0.00-0.03) X10*3/uL Absolute Neuts (auto) 3.6 (2.0-8.3) x10*3/uL Absolute Nucleated RBC 0.000 (0.0-0.012) X10*3/uL Nucleated RBC % (auto) 0.0 (0.0-0.2) /100WBC ESR 4 (0-20) MM/HR Sodium 138 (135-145) mmol/L Potassium 3.5 (3.3-5.1) mmol/L Chloride 108 (96-108) mmol/L Carbon Dioxide 22 (22-29) mmol/L Anion Gap 12 (12-20) BUN 8 L (9-16) mg/dL Creatinine 0.63 (0.5-1.4) mg/dL Estim Creat Clear Calc 128.4 Estimated GFR > 60 Random Glucose 80 (60-115) mg/dL Lactic Acid 1.3 (0.5-2.0) mmol/L Calcium 9.3 (8.4-10.2) mg/dL Magnesium 1.8 (1.6-2.6) mg/dL Total Bilirubin 0.3 (0.0-1.0) mg/dL Direct Bilirubin 0.1 (0.0-0.5) mg/dL AST 20 (5-31) U/L ALT 20 (0-31) U/L Alkaline Phosphatase 68 (39-117) U/L C-Reactive Protein 1.24 H (< or = 0.50) mg/dL Total Protein 7.2 (6.5-8.0) g/dL Albumin 3.9 (3.5-5.0) g/dL Lipase 16 (8-78) U/L Urine Color Dark Yellow Urine Appearance Clear Urine pH 5.5 (5.0-9.0) Ur Specific [place] >= 1.030 H (1.005-1.025) Urine Protein Trace (Neg-Trace) mg/dL Urine Glucose (UA) Negative (Negative) mg/dL Urine Ketones 40 (Negative) mg/dL Urine Blood Negative (Negative) Urine Nitrite Negative (Negative) Ur Leukocyte Esterase Negative (Negative) Stl C. cayetanensis PCR Not Detected (Not Detect.) Stool Rotavirus A PCR Not Detected (Not Detect.) Stl Adenov F 40/41 PCR Not Detected (Not Detect.) Stool Astrovirus (PCR) Not Detected (Not Detect.) Stool Campylobacter PCR Not Detected (Not Detect.) Stool Cryptosporidium PCR Not Detected (Not Detect.) Stl Sh Tox Pr E STEC PCR Not Detected (Not Detect.) Stool E coli O157 PCR Not applicable (Not Detect.) Stl Enterotoxigenic E PCR Not Detected (Not Detect.) Stool EPEC (PCR) Not Detected (Not Detect.) Stool EAEC (PCR) Not Detected (Not Detect.) Stl E. histolytica PCR Not Detected (Not Detect.) Stool Giardia Lamblia PCR Not Detected (Not Detect.) Stl P. shigelloides PCR Not Detected (Not Detect.) Stool Salmonella PCR Not Detected (Not Detect.) Stool Sapovirus (PCR) Not Detected (Not Detect.) Stl Shigella/EIEC PCR Not Detected (Not Detect.) St Y.enterocolitica PCR Not Detected (Not Detect.) Stool Vibrio (PCR) Not Detected (Not Detect.) Stl Vibrio cholerae PCR Not Detected (Not Detect.) Stl Norovirus GI/GII PCR Not Detected (Not Detect.) C. difficile Tox B Gene NEGATIVE (Negative) Influenza Type A (PCR) NEGATIVE (Negative) Influenza Type B (PCR) NEGATIVE (Negative) RSV RNA Qual (PCR) NEGATIVE (Negative) SARS-CoV-2 RNA (RT-PCR) NEGATIVE (Negative) Radiology Impression Discussion of test interpretation with radiology: I have reviewed the radiologist's reading. Radiologist Impression: EXAMINATION: CT ABDOMEN AND PELVIS WITHOUT CONTRAST CLINICAL INFORMATION: Abdominal pain, diarrhea COMPARISON: Abdomen ultrasound of 08/24/2022 TECHNIQUE: Multidetector volumetric imaging was performed from the superior aspect of the liver through the pubic symphysis. Sagittal and coronal reformatted images were obtained on the technologist's workstation. This CT examination was performed using dose optimization techniques as appropriate, variously including the following: *Automated exposure control *Adjustment of mA and/or kV according to patient size (this includes techniques or standardized protocols for targeted exams where dose is matched to indication/reason for exam; i.e. extremities or head) *Use of iterative reconstruction technique DLP: 924 mGy-cm FINDINGS: LUNG BASES: The visualized lung bases are unremarkable. LIVER, GALLBLADDER, AND BILIARY TREE: The liver is enlarged measuring 21 cm long, and diffusely low in density consistent with steatosis. No hepatic mass or biliary ductal dilatation is evident. The gallbladder is distended. No wall thickening or pericholecystic edema is evident. PANCREAS: Unremarkable. SPLEEN: Unremarkable. ADRENAL GLANDS: Unremarkable. KIDNEYS AND URETERS: The kidneys are normal in size, shape, and attenuation. No hydronephrosis, hydroureter, or calculi seen. No perinephric stranding. BLADDER: Unremarkable. GASTROINTESTINAL TRACT: There are multiple fluid-filled small bowel loops, and consistent with clinical diagnosis of diarrhea, but no dilated large or small bowel loops are evident. The appendix is unremarkable. ABDOMINAL WALL: No significant hernia is appreciated. LYMPH NODES: Normal. VASCULAR: Unremarkable. PELVIC VISCERA: The uterus is not identified and presumably surgically absent. There are no adnexal masses. OSSEOUS STRUCTURES: Unremarkable. CT/CT abdomen pelvis wo IV con IMPRESSION: 1. Multiple fluid-filled nondilated loops of small bowel consistent with diarrhea. 2. Hepatic steatosis. Fleischner guidelines were followed. Dictated By: Crispin Saavedra MD Discharge Plan Discharge Clinical Impression: Diarrhea Patient Disposition: Home, Self-Care Instructions: Acute Diarrhea (ED) Additional Instructions: You were seen in the emergency room due to diarrhea. Your workup was reassuring. You tested negative for COVID, RSV, and flu Your CT scan shows evidence of diarrhea, otherwise unremarkable. You had given us a stool sample, this does take several days for to return. We will call you if any of these are abnormal. Drink plenty of fluids get plenty of rest. You need to avoid a high fatty diet, dairy. Eating a diet with gluten free bread, rice, applesauce, tea and bananas can help bind her stool. Avoid Imodium, you may take Pepto-Bismol for relief. If any new or worsening symptoms occur including but not limited to worsening abdominal pain, diarrhea, bloody or black stool, please return for re- evaluation. Prescriptions: No Action cholecalciferol (vitamin D3) 125 mcg (5,000 unit) capsule 125 mcg PO DAILY Qty: 30 3RF amoxicillin 500 mg capsule 1,000 mg PO Q12H 14 Days Qty: 56 0RF clarithromycin 500 mg tablet 500 mg PO Q12H 14 Days Qty: 28 0RF omeprazole 40 mg capsule,delayed release(DR/EC) 40 mg PO BID 14 Days Qty: 28 0RF vitamin A palmitate 10,000 unit capsule 10,000 unit PO DAILY Qty: 30 2RF fluconazole [Diflucan] 150 mg tablet 150 mg PO DAILY Qty: 2 0RF Rx Instructions: Take one tab on 06/27/22, may repeat on 06/29/22 if symptoms persist cephalexin 500 mg capsule 500 mg PO Q12H Qty: 14 0RF morphine 15 mg tablet 15 mg PO Q6H PRN (Reason: pain) Qty: 10 0RF Rx Instructions: The patient may ask for partial fill; Partial Fill upon patient request. mecobalamin (vitamin B12) 1,000 mcg tablet,disintegrating 1,000 mcg sublingual DAILY Qty: 30 2RF Rx Instructions: place tablet under tongue and allow to dissolve for at least30 secs before swallowing amlodipine 10 mg tablet 10 mg PO DAILY hydrochlorothiazide 25 mg tablet 25 mg PO DAILY levothyroxine [Euthyrox] 200 mcg tablet 200 mcg PO DAILY PRN levothyroxine [Euthyrox] 50 mcg tablet 50 mcg PO QAM Botox 200 unit recon soln intradermal albuterol sulfate 90 mcg/actuation HFA aerosol inhaler 0 mcg inhalation Stand Alone Forms: Work/School Release Interventions: ED Discharge Assessment Last Done: 10/04/23 19:53 Discharge Date/Time: 10/04/23 19:55
[2023-10-04 16:02] LABS: MANUAL DIFF FLAG NO
[2023-10-04 16:06] LABS: Basophils Percent Auto 0.3 % (0-2); Eosinophils Absolute Auto 0.4 X10*3/uL (0.0-0.4); Eosinophils Percent Auto 5.5 % (0-4); Hematocrit 50.9 % (37.0-47.0); Hemoglobin 17.1 g/dl (12.0-16.0); Imm Gran Abs Auto 0.03 X10*3/uL (0.00-0.03); Imm Gran Pct Auto 0.4 % (0.0-0.4); Lymphocytes Absolute Auto 2.8 X10*3/uL (1.2-4.9); Lymphocytes Percent Auto 36.6 % (20-40); Mean Corpuscular HGB Conc 33.6 g/dl (31.0-35.0); Mean Corpuscular Hemoglobin 29.9 pg (27.0-33.0); Mean Corpuscular Volume 89.1 fL (80.0-98.0); Mean Platelet Volume 10.6 fL (9.4-12.3); Monocytes Absolute Auto 0.8 X10*3/uL (0.1-1.2); Monocytes Percent Auto 10.3 % (2-11); Neutrophils Absolute Auto 3.6 x10*3/uL (2.0-8.3); Neutrophils Percent Auto 46.9 % (45-73); Platelet Count 324 X10*3/uL (160-400); Red Blood Count 5.71 X10*6/uL (4.20-5.50); Red Cell Distribution Width 13.9 % (11.0-16.0); White Blood Count 7.7 X10*3/uL (4.8-10.8)
[2023-10-04] MEDS: 0.9 % Sodium Chloride 1,000 ML 999 ML IV (16:06)
[2023-10-04 16:13] LABS: Lactic Acid 1.3 mmol/L (0.5-2.0)
[2023-10-04 16:45] LABS: Influenza A PCR NEGATIVE (Negative); Influenza B PCR NEGATIVE (Negative); Resp Syncy Virus RNA Qual PCR NEGATIVE (Negative); SARS COV2 PCR INHOUSE NEGATIVE (Negative)
[2023-10-04 16:55] LABS: Erythrocyte Sedimentation Rate 4 MM/HR (0-20)
[2023-10-04 17:33] LABS: Alanine Aminotransferase 20 U/L (0-31); Albumin Level 3.9 g/dL (3.5-5.0); Alkaline Phosphatase 68 U/L (39-117); Anion Gap 12 (12-20); Aspartate Amino Transferase 20 U/L (5-31); Bilirubin Direct 0.1 mg/dL (0.0-0.5); Bilirubin Total 0.3 mg/dL (0.0-1.0); Blood Urea Nitrogen 8 mg/dL (9-16); C Reactive Protein 1.24 mg/dL (< or = 0.50); Calcium 9.3 mg/dL (8.4-10.2); Carbon Dioxide 22 mmol/L (22-29); Chloride 108 mmol/L (96-108); Creatinine Clr Calc Pharmacy 128.4; Estimated Glomerular Filt Rate > 60; Glucose Random 80 mg/dL (60-115); Lipase 16 U/L (8-78); Magnesium 1.8 mg/dL (1.6-2.6); Potassium 3.5 mmol/L (3.3-5.1); Sodium 138 mmol/L (135-145); Total Protein 7.2 g/dL (6.5-8.0)
[2023-10-04 18:45] LABS: Appearance Urine Clear; Color Urine Dark Yellow; Glucose Urine UA Negative (Negative); Leukocyte Esterase Urine Negative (Negative); Nitrite Urine Negative (Negative); PH 5.5 (5.0-9.0); Specific Gravity - Urine >= 1.030 (1.005-1.025); Urine Blood Negative (Negative); Urine Ketones 40 mg/dL (Negative); Urine Protein Trace mg/dL (Neg-Trace)
[2023-10-04 19:45] LABS: CDiff Gene PCR NEGATIVE (Negative)
[2023-10-04 19:53] VITALS: BP 105/73; PULSE 84; RESP 18; O2SAT 99
[2023-10-05 09:51] LABS: Adenovirus F 40/41 Not Detected (Not Detect.); Astrovirus Not Detected (Not Detect.); Campylobacter Not Detected (Not Detect.); Cryptosporidium Not Detected (Not Detect.); Cyclospora cayetanensis Not Detected (Not Detect.); E. coli EAEC Not Detected (Not Detect.); E. coli EPEC Not Detected (Not Detect.); E. coli ETEC Not Detected (Not Detect.); E. coli STEC Not Detected (Not Detect.); Entamoeba histolytica Not Detected (Not Detect.); Giardia lamblia Not Detected (Not Detect.); Norovirus GI/GII Not Detected (Not Detect.); Plesiomonas shigelloides Not Detected (Not Detect.); Rotavirus A Not Detected (Not Detect.); Salmonella Not Detected (Not Detect.); Sapovirus Not Detected (Not Detect.); Shigella sp./EIEC Not Detected (Not Detect.); Vibrio Not Detected (Not Detect.); Vibrio Cholerae Not Detected (Not Detect.); Yersinia enterocolitica Not Detected (Not Detect.)
== END 2023-10-04 19:55 | disposition home or self-care (01) ==
PROVIDERS: Physician Assistant Medical; Emergency Provider Emergency Medicine Emergency Medical Services
DX: R11.2 Nausea with vomiting, unspecified (principal); R19.7 Diarrhea, unspecified; Z20.822 Contact with and (suspected) exposure to COVID-19; Z20.828 Contact with and (suspected) exposure to other viral communicable diseases; Z79.899 Other long term (current) drug therapy; Z87.891 Personal history of nicotine dependence
CPT/HCPCS: 0241U; 36415; 74176; 80048; 80076; 81003; 83605; 83690; 83735; 85025; 85652; 86140; 87493; 87507; 99283; 99284